=== PATIENT | female | born 1975 | race Hispanic/Latino ===

== ENCOUNTER 2017-01-10 08:52 | Inpatient (IN) | payer OTHER ==
[2017-01-10 09:38] LABS: Mean Corpuscular HGB Conc 30 % (30-34); Mean Corpuscular Volume 71 fl (79-97); Platelet Count 303 K/mm3 (140-440); Red Blood Count 4.64 M/mm3 (3.65-5.03); Red Cell Distribution Width 17.2 % (13.2-15.2)
[2017-01-10 09:43] LABS: Mean Corpuscular Hemoglobin 22 pg (28-32)
[2017-01-10 09:57] LABS: Alanine Aminotransferase 12 units/L (7-56); Albumin 3.7 g/dL (3.9-5); Albumin/Globulin Ratio 1.2 %; Alkaline Phosphatase 57 units/L (35-129); Anion Gap 18 mmol/L; BUN/Creatinine Ratio 12.85; Bilirubin,Total 0.4 mg/dL (0.1-1.2); Blood Urea Nitrogen 9 mg/dL (7-17); Calcium 9.5 mg/dL (8.4-10.2); Carbon Dioxide 25 mmol/L (22-30); Glucose 142 mg/dL (65-100); Lipase 27 units/L (13-60); Potassium 4.1 mmol/L (3.6-5.0); Sodium 136 mmol/L (137-145); Total Protein 6.9 g/dL (6.3-8.2)
[2017-01-10] MEDS ORDERED: ZOFRAN IV ONE (10:27)
[2017-01-10] MEDS ORDERED: TORADOL IV ONE (10:27)
[2017-01-10] MEDS ORDERED: NACL 0.9% 1000 ML 1,000 ML IV ONE (10:27)
[2017-01-10] MEDS ORDERED: MORPHINE IV ONE ×2 (10:27→12:18)
--- NOTE | 2017-01-10 10:30 | Emergency Department Report ---
ED Abdominal Pain HPI - General Chief Complaint: Abdominal Pain Stated Complaint: ABD PAIN Time Seen by Provider: 01/10/17 10:24 Source: patient, EMS Mode of arrival: Wheelchair Limitations: No Limitations - History of Present Illness MD Complaint: abdominal pain Onset/Timin -: Gradual, days(s) Location: periumbilical, LUQ, RUQ, epigastric Radiation: none Severity: moderate Severity scale (0 -10): 7 Quality: cramping Consistency: constant Improves With: nothing Worsens With: nothing Associated Symptoms: nausea, vomiting. denies: diarrhea, fever, chills, constipation, dysuria, hematemesis, hematochezia, melena, hematuria, anorexia - Related Data Home Medications Medication Instructions Recorded Confirmed Last Taken No Known Home Medications [No 01/10/17 01/10/17 Unknown Reported Home Medications] Allergies Allergy/AdvReac Type Severity Reaction Status Date / Time No Known Allergies Allergy Verified 01/10/17 12:27 ED Review of Systems ROS: Stated complaint: ABD PAIN Other details as noted in HPI Constitutional: denies: chills, fever Eyes: denies: eye pain, eye discharge, vision change ENT: denies: ear pain, throat pain Respiratory: denies: cough, shortness of breath, wheezing Cardiovascular: denies: chest pain, palpitations Endocrine: no symptoms reported Gastrointestinal: denies: abdominal pain, nausea, diarrhea Genitourinary: denies: urgency, dysuria, discharge Musculoskeletal: denies: back pain, joint swelling, arthralgia Skin: denies: rash, lesions Neurological: denies: headache, weakness, paresthesias Psychiatric: denies: anxiety, depression Hematological/Lymphatic: denies: easy bleeding, easy bruising ED Past Medical Hx - Past Medical History Previous Medical History?: No - Surgical History Past Surgical History?: Yes Additional Surgical History: tonsillectomy, tubal ligation, - Social History Smoking Status: Current Every Day Smoker Substance Use Type: Alcohol - Medications Home Medications: Home Medications Medication Instructions Recorded Confirmed Last Taken Type No Known Home Medications [No 01/10/17 01/10/17 Unknown History Reported Home Medications] ED Physical Exam - General Limitations: No Limitations General appearance: alert, in no apparent distress - Head Head exam: Present: atraumatic, normocephalic - Eye Eye exam: Present: normal appearance - ENT ENT exam: Present: mucous membranes moist - Neck Neck exam: Present: normal inspection - Respiratory Respiratory exam: Present: normal lung sounds bilaterally. Absent: respiratory distress - Cardiovascular Cardiovascular Exam: Present: regular rate, normal rhythm. Absent: systolic murmur, diastolic murmur, rubs, gallop - GI/Abdominal GI/Abdominal exam: Present: soft, tenderness (mild tenderness in RUQ/LUQ, ), normal bowel sounds. Absent: distended, guarding, rebound, rigid, organomegaly , mass, bruit, pulsatile mass, hernia - Extremities Exam Extremities exam: Present: normal inspection - Back Exam Back exam: Present: normal inspection - Neurological Exam Neurological exam: Present: alert, oriented X3 - Psychiatric Psychiatric exam: Present: normal affect, normal mood - Skin Skin exam: Present: warm, dry, intact, normal color. Absent: rash ED Course Vital Signs 01/10/17 01/10/17 01/10/17 08:57 10:55 11:00 Temperature 98.8 F Pulse Rate 112 H 106 H 109 H Respiratory 18 23 20 Rate Blood Pressure 132/85 116/78 O2 Sat by Pulse 100 100 Oximetry 01/10/17 01/10/17 01/10/17 11:30 11:39 11:40 Temperature Pulse Rate 100 H Respiratory 22 22 22 Rate Blood Pressure 117/69 O2 Sat by Pulse 98 98 Oximetry 01/10/17 01/10/17 11:41 12:21 Temperature Pulse Rate Respiratory 22 22 Rate Blood Pressure O2 Sat by Pulse Oximetry ED Medical Decision Making - Lab Data Result diagrams: 01/10/17 09:15 01/10/17 09:15 - Medical Decision Making patient doing well , tachycardia resolved with fluids and morphine , US showing some GB sludge , but with her elevated WBC decided to to ct scan which shows free fluid and free air, talk to surgery at 1pm and relay the cases at hand , Abx given here and fluids given here , Critical care attestation.: If time is entered above; I have spent that time in minutes in the direct care of this critically ill patient, excluding procedure time. ED Disposition Clinical Impression: Perforated abdominal viscus Disposition: OP ADMITTED IP TO THIS HOSP Is pt being admited?: Yes Does the pt Need Aspirin: No Condition: Fair Instructions: Abdominal Pain (ED) Referrals: PRIMARY CARE, [Primary Care Provider] - 3-5 Days Time of Disposition: 13:02
[2017-01-10 11:10] LABS: Bacteria,Urine 1+ /HPF (Negative); Bilirubin,Urine NEG (Negative); Blood,Urine NEG (Negative); Ketones,Urine NEG (Negative); Leukocyte Esterase,Urine NEG (Negative); Nitrite,Urine NEG (Negative); Urobilinogen,Urine < 2.0 mg/dL (<2.0)
--- NOTE | 2017-01-10 11:12 | Ultrasound Report ---
Abdomen sonogram: History: Abdominal pain. Findings: No evidence of aortic aneurysm. Normal liver. No intrahepatic or extrahepatic duct dilatation. Common bile duct diameter 3.6 mm. Gallbladder wall thickness 2.5 mm. No calculi in the gallbladder. Minimal sludge. No pericholecystic fluid. Right kidney 11.5 x 5.1 x 6.4 cm. Cortical thickness 1.8 cm. Left kidney 10 x 4.5 x 6 cm. Cortical thickness is 1.0 cm. Normal spleen measures 9.4 cm. Normal pancreas. Impression: Minimal sludge within the gallbladder.
[2017-01-10 11:29] LABS: Basophils % (Manual) 0 % (0.0-1.8); Blastocytes % (Manual) 0 %; Diff Status Complete; Eosinophils % (Manual) 0 % (0.0-4.3); Hypochromasia 2+
[2017-01-10] MEDS ORDERED: MORPHINE ONE (12:14)
[2017-01-10] MEDS ORDERED: NACL ONE (12:23)
[2017-01-10] MEDS ORDERED: PROTONIX IV ONE (12:56)
[2017-01-10] MEDS ORDERED: CLEOCIN 600 MG/50 mL 600 MG/50 ML BAG IV ONE (12:56)
[2017-01-10] MEDS ORDERED: UNASYN/NS 3 GM/100 ML 3 GM/100 ML BAG IV ONE (12:56)
--- NOTE | 2017-01-10 12:58 | Cat Scan Report ---
CT SCAN OF THE ABDOMEN AND PELVIS WITH CONTRAST: HISTORY: Abdominal pain. TECHNIQUE: Helical CT in 1.25mm intervals following IV contrast. Sagittal and coronal reconstructions. FINDINGS: Large free air and moderate free fluid is identified in the abdomen. Perforated viscus is suspected until proven otherwise. The site of perforation is not clearly evident. There is no convincing evidence for bowel obstruction. There does appear to be mild thickening of the gastric antrum and proximal duodenum. This could represent a perforated ulcer. Please correlate with the patient's clinical presentation. The liver, biliary system, pancreas, spleen, kidneys and adrenal glands are unremarkable. The aorta is normal caliber. The venous structures are patent. The uterus, adnexa and bladder are within normal limits. Normal heart size. Clear lung bases. Normal bony structures. IMPRESSION: Free intraperitoneal air and fluid is identified. Perforated viscus is suspected until proven otherwise. This may represent a perforated ulcer from the stomach or duodenum. Please correlate with the patient's clinical presentation. These findings were discussed with Dr. Taylor in the emergency department at 1245 hrs.
--- NOTE | 2017-01-10 13:08 | Admit Criteria Form ---
Admission Criteria Documentation: ABDOMINAL PAIN Clinical Indications for Admission to Inpatient Care (Place 'X' for any and all applicable criteria): Admission is indicated for ANY ONE of the following(1)(2)(3)(4)(5): [X ]I. Inpatient admission required rather than observation care (Also use Abdominal Pain: Observation Care, as appropriate) because of ANY ONE of the following: [ ]a) Severe pain requiring acute inpatient management [X ]b) Identification of etiology/finding that requires inpatient care (eg, aortic dissection, free air) [ ]c) Absent bowel sounds with complete ileus(6) [ ]d) Suspected toxic megacolon [ ]e) Severe electrolyte abnormalities requiring inpatient care [ ]f) High fever or infection requiring inpatient admission as indicated by ANY ONE of following(7)(8): [ ] i) Appropriate outpatient or observational care antimicrobial treatment unavailable, not effective, or not feasible [ ] ii) Documented bacteremia [ ] iii) Temperature > 104.9 degrees F (oral) [ ] iv) T >103.1 F (oral) or < 96.8 F(rectal) that does not respond to all emergency treatment measures [ ]g) Signs of intestinal obstruction [B] [ ]h) Hemodynamic instability [ ]i) IV fluid to replace significant ongoing losses (greater than 3 L/m2 per day) (12)(13) [ ]j) Percutaneous or open drainage (eg, abscess, biliary tract ) procedures [ ]k) Parenteral nutrition regimen that must be implemented on inpatient basis [ ]l) Other condition,treatment or monitoring requiring inpatient admission. [ ]II. Peritoneal signs present [ ]III. Surgery needed that cannot be performed on an ambulatory basis. [ ]IV. Evaluation requires patient to not eat or drink for extended period ( eg, more than 24 hours). [ ]V. Contraindications and/or Inappropriate clinical situations for Observational Care in patients with abdominal pain, when ANY ONE of the following is required: [ ]a) Thorough evaluation is required to prevent catastrophic events due to delays in diagnosing (e.g.Mesenteric ischemia) 1,3 [ ]b) Patient with severe pathology or with chronic symptoms unlikely to improve in the ED stay (3) [ ]. General contraindications and/or Inappropriate clinical situations for Observational Care in patients with abdominal pain, when ANY ONE of the following is required: [ ]a) Prediction of prolongation of LOS based on ANY ONE of the following may be considered as a contraindication for observational care 2, 3, 4, 5, 6, 7, 8, 9, 10, 11 [ ]i) Age > 65 yrs. [ ]ii) Patient arriving by ambulance [ ]iii) Patient with high acuity [ ]iv) Patient requiring vital sign monitoring [ ]v) Patient on IV medication [ ]b) Systolic blood pressures 180mmHg 3,12 [ ]c) Patient with altered mental status including delirium and other alteration of consciousness, (3) [ ]d) Patient whose discharge disposition will be to a assisted home or rehabilitation home should not be managed in Emergency Department Observation Unit. CMS rule requires 3 days hospital stay before such placement.3,13 [ ]e) Patient with failure to thrive due to broad array of etiologies 3,16,17 [ ]f) Inability to ambulate 3,14 Extended stay beyond goal length of stay may be needed for(2)(3): [ ]a) Persistent abdominal pain with suspected intra-abdominal process [ ]b) Diagnosed condition requiring continued stay (e.g., pancreatitis, complicated diverticulitis) [ ]c) Surgery (e.g., colectomy) The original [email or web address] content created by [employer] has been revised. The portions of the content which have been revised are identified through the use of italic text or in bold, and [facility] has neither reviewed nor approved the modified material.All other unmodified content is copyright [email or web address]. Please see references footnoted in the original [email or web address] edition 2016 Admission Criteria Met: Yes
[2017-01-10] MEDS ORDERED: DILAUDID IV ONE (13:37)
[2017-01-10] MEDS ORDERED: D5W/0.45% NACL/KCL 20 MEQ 20 MEQ/1,000 ML BAG IV SCH (15:00)
[2017-01-10] MEDS ORDERED: ZOFRAN IV NR (15:00)
[2017-01-10] MEDS ORDERED: DIPRIVAN 10 MG/ML IV ONE (15:13)
[2017-01-10] MEDS ORDERED: DILAUDID ONE (15:13)
[2017-01-10] MEDS ORDERED: XYLOCAINE MPF 2% ONE (15:14)
[2017-01-10] MEDS ORDERED: ZEMURON IV ONE (15:15)
[2017-01-10] MEDS ORDERED: QUELICIN ONE (15:16)
[2017-01-10] MEDS ORDERED: ROBINUL ONE (15:17)
--- NOTE | 2017-01-10 15:36 | Anesthesia Day of Surgery ---
Anesthesia Day of Surgery - Day of Surgery Patient Examined: Yes Patient H&P Reviewed: Yes Patient is NPO: Yes
--- NOTE | 2017-01-10 15:37 | Anesthesia Consultation ---
Anesthesia Consult and Med Hx - Airway Anesthetic Teeth Evaluation: Good, Caps ROM Head & Neck: Adequate Mental/Hyoid Distance: Adequate Mallampati Class: Class II Intubation Access Assessment: Probably Good - Pulmonary Exam CTA: Yes - Cardiac Exam Cardiac Exam: RRR - Pre-Operative Health Status ASA Pre-Surgery Classification: ASA2 Proposed Anesthetic Plan: General - Pulmonary Hx Smoking: Yes - Gastrointestinal Hx Ulcer: Yes - Hematic Hx Anemia: Yes - Additional Comments Anesthesia Medical History Comments: NPO after MN . No prior anesthesia problems. Hx HTN
[2017-01-10] MEDS ORDERED: NACL 0.9% 1000 ML 1,000 ML IV SCH (16:00)
[2017-01-10] MEDS ORDERED: VERSED IV NR (16:00)
[2017-01-10] MEDS ORDERED: NEOSTIGMINE ONE (16:30)
[2017-01-10] MEDS ORDERED: ZOFRAN ONE (16:30)
[2017-01-10] MEDS ORDERED: DECADRON ONE (16:34)
[2017-01-10] MEDS ORDERED: NACL 0.9% 1000 ML 1,000 ML ONE (16:44)
[2017-01-10] MEDS ORDERED: DILAUDID IV PRN (17:23)
--- NOTE | 2017-01-10 18:25 | Post Anesthesia Evaluation ---
- Post Anesthesia Evaluation Patient Participated: Yes Airway Patent: Yes Stable Respiratory Function: Yes Temp > 96.8F: Yes Pain Manageable: Yes Adequeate Hydration: Yes Anesthesia Complications: No Block Receding Appropriately: Not Applicable
--- NOTE | 2017-01-10 19:53 | Operative Report ---
PREOPERATIVE DIAGNOSES: Acute abdominal pain with nausea and the free air under diaphragm. POSTOPERATIVE DIAGNOSIS: Perforated prepyloric ulcer located just before the pylorus is about 1 x 1 cm we took a biopsy from that. BLOOD LOSS: Minimal. FINDINGS: The patient had a perforated ulcer in the prepyloric area is about 1 x 1 cm with severe inflammation we took a biopsy of that. This examination did not reveal anything specific. I had copious irrigation of the entire abdominal cavity. DESCRIPTION OF PROCEDURE: With the patient in supine position, prepped and draped in usual fashion. I made a midline supraumbilical incision in deep subcutaneous tissue all the way down to fascia, which was incised. I was able to reach the peritoneum. Once I was there, I could see the inflammatory findings in the prepyloric area just inferior to the right lobe of the liver. So the entire abdominal cavity was irrigated thoroughly with copious amounts of normal saline. I was able to take a small biopsy of the ulcer and this was closed with one layer using for that purpose interrupted stitches of 3-0 silk through and through. Then, a tie over off the omentum was applied to have a good closure. We were well satisfied. The abdominal cavity was then irrigated with sterile normal saline then the wound was closed in layers. I used #1 Vicryl interruptedly for the fascia and inés for the skin with Telfa sarah in between and the bandage. The patient was then transferred to the recovery room in good condition. Blood loss not more than 30 minutes. We had NG tube inserted as well. JOB# [id number] SARA/ELI
--- NOTE | 2017-01-10 20:35 | History and Physical Report ---
HISTORY OF PRESENT ILLNESS: This patient was seen in the ER the day of this admission because of severe pain that is about 1 day duration in the epigastric area, with nausea and vomiting. She gives the history of ulcer disease for which she does not take any medication on a regular basis, every now and then according to her pain. PHYSICAL EXAMINATION: GENERAL: Showed a well-preserved, young, healthy-looking white female. She is in no distress. HEAD AND NECK: Negative. CHEST: Clear. HEART: Sound normal. BREASTS: Symmetric. No evidence of specific masses. ABDOMEN: Showed severe tenderness with rebound in the epigastric area. EXTREMITIES: Showed no significant edema. IMPRESSION: Perforated viscus, probably peptic ulcer with peptic ulcer disease. Exogenous obesity? I had a lengthy talk with the patient and her mom for surgical intervention in terms of an emergency, to go in and find an ulcer and close it. I did indicate to them the complications involved with this operation, namely bleeding, infection, perforation, pneumonia, blood clots and others. They gave me the permission to go ahead and do it, and this was done. JOB# [id number] SARA/ELI
[2017-01-10 22:17] LABS: Anion Gap 15 mmol/L; BUN/Creatinine Ratio 13.33; Blood Urea Nitrogen 8 mg/dL (7-17); Calcium 8.2 mg/dL (8.4-10.2); Carbon Dioxide 24 mmol/L (22-30); Glucose 121 mg/dL (65-100); Potassium 4.1 mmol/L (3.6-5.0); Sodium 135 mmol/L (137-145)
[2017-01-11] MEDS: DILAUDID IV PRN ×6 (00:11→21:10)
[2017-01-11] MEDS: D5W/0.45% NACL/KCL 20 MEQ 20 MEQ/1,000 ML BAG IV SCH ×2 (04:54→16:56)
[2017-01-11 09:14] LABS: Hematocrit 26.5 % (30.3-42.9); Mean Corpuscular HGB Conc 30 % (30-34); Mean Corpuscular Hemoglobin 22 pg (28-32); Mean Corpuscular Volume 72 fl (79-97); Platelet Count 212 K/mm3 (140-440); Red Blood Count 3.68 M/mm3 (3.65-5.03); White Blood Count 14.9 K/mm3 (4.5-11.0)
[2017-01-11] MEDS: LEVAQUIN 750MG/150ML 750 MG/150 ML BAG IV SCH (10:15)
[2017-01-11] MEDS ORDERED: CHLORASEPTIC MM PRN (15:38)
--- NOTE | 2017-01-11 15:58 | Progress Note ---
Subjective Narrative: doing OK talked to Pt and RN will need to Keep NG to LIS. noted low HGB , Objective Vital Signs - 12hr 01/11/17 01/11/17 07:00 10:00 Temperature 98 F 98.1 F Pulse Rate [ 88 66 Left Brachial] Respiratory 20 20 Rate Blood Pressure 107/80 110/60 [Left Arm] O2 Sat by Pulse 98 Oximetry - Labs 01/11/17 08:18 01/10/17 21:40 Diabetes panel 01/10/17 Range/Units 21:40 Sodium 135 L (137-145) mmol/L Potassium 4.1 (3.6-5.0) mmol/L Chloride 100.0 (98-107) mmol/L Carbon Dioxide 24 (22-30) mmol/L BUN 8 (7-17) mg/dL Creatinine 0.6 L (0.7-1.2) mg/dL Glucose 121 H (65-100) mg/dL Calcium 8.2 L (8.4-10.2) mg/dL Calcium panel 01/10/17 Range/Units 21:40 Calcium 8.2 L (8.4-10.2) mg/dL Pituitary panel 01/10/17 Range/Units 21:40 Sodium 135 L (137-145) mmol/L Potassium 4.1 (3.6-5.0) mmol/L Chloride 100.0 (98-107) mmol/L Carbon Dioxide 24 (22-30) mmol/L BUN 8 (7-17) mg/dL Creatinine 0.6 L (0.7-1.2) mg/dL Glucose 121 H (65-100) mg/dL Calcium 8.2 L (8.4-10.2) mg/dL Adrenal panel 01/10/17 Range/Units 21:40 Sodium 135 L (137-145) mmol/L Potassium 4.1 (3.6-5.0) mmol/L Chloride 100.0 (98-107) mmol/L Carbon Dioxide 24 (22-30) mmol/L BUN 8 (7-17) mg/dL Creatinine 0.6 L (0.7-1.2) mg/dL Glucose 121 H (65-100) mg/dL Calcium 8.2 L (8.4-10.2) mg/dL
[2017-01-12] MEDS: D5W/0.45% NACL/KCL 20 MEQ 20 MEQ/1,000 ML BAG IV SCH ×4 (00:03→23:08)
[2017-01-12] MEDS: DILAUDID IV PRN ×4 (01:19→23:08)
[2017-01-12 09:48] LABS: Basophils % (Auto) 0.2 % (0.0-1.8); Eosinophils % (Auto) 3.3 % (0.0-4.3); Hematocrit 25.4 % (30.3-42.9); Hemoglobin 7.8 gm/dl (10.1-14.3); Mean Corpuscular HGB Conc 31 % (30-34); Mean Corpuscular Volume 72 fl (79-97); Platelet Count 223 K/mm3 (140-440); Red Blood Count 3.54 M/mm3 (3.65-5.03); Red Cell Distribution Width 17.5 % (13.2-15.2)
[2017-01-12 09:50] LABS: Mean Corpuscular Hemoglobin 22 pg (28-32)
[2017-01-12] MEDS: LEVAQUIN 750MG/150ML 750 MG/150 ML BAG IV SCH (09:56)
--- NOTE | 2017-01-12 17:16 | Progress Note ---
Subjective Narrative: Doing fine ambulatory ,500 cc gastric output . wound OK sarah out , will see if NG to be out , CBC OK , Objective Vital Signs - 12hr 01/12/17 01/12/17 08:00 16:00 Temperature 98.4 F 98.8 F Pulse Rate [ 78 94 H Left Brachial] Respiratory 18 18 Rate Blood Pressure 122/80 138/91 [Left Arm] O2 Sat by Pulse 98 Oximetry - Labs 01/12/17 09:29 01/10/17 21:40
[2017-01-13] MEDS: DILAUDID IV PRN ×6 (03:12→22:58)
[2017-01-13] MEDS: D5W/0.45% NACL/KCL 20 MEQ 20 MEQ/1,000 ML BAG IV SCH ×3 (06:13→21:57)
[2017-01-13 08:42] LABS: Anion Gap 17 mmol/L; BUN/Creatinine Ratio 6.66; Blood Urea Nitrogen 4 mg/dL (7-17); Calcium 8.7 mg/dL (8.4-10.2); Carbon Dioxide 26 mmol/L (22-30); Chloride 97.9 mmol/L (98-107); Glucose 112 mg/dL (65-100); Potassium 3.9 mmol/L (3.6-5.0); Sodium 137 mmol/L (137-145)
[2017-01-13] MEDS: LEVAQUIN 750MG/150ML 750 MG/150 ML BAG IV SCH (10:03)
--- NOTE | 2017-01-13 19:02 | Progress Note ---
Subjective Patient Reports: Positive: feels better, still having pain, pain is less, flatus , no bowel movement Narrative: doing excellent , ambulatory passing flatus no BM NG out will keep NPO . Objective Vital Signs - 12hr 01/13/17 01/13/17 09:45 17:00 Temperature 99.1 F 99.4 F Pulse Rate [ 98 H Left Brachial] Pulse Rate [ 83 Right From Monitor] Respiratory 18 18 Rate Blood Pressure 133/76 121/75 [Right Arm] O2 Sat by Pulse 95 97 Oximetry - Labs 01/12/17 09:29 01/13/17 07:45 Diabetes panel 01/13/17 Range/Units 07:45 Sodium 137 (137-145) mmol/L Potassium 3.9 (3.6-5.0) mmol/L Chloride 97.9 L (98-107) mmol/L Carbon Dioxide 26 (22-30) mmol/L BUN 4 L (7-17) mg/dL Creatinine 0.6 L (0.7-1.2) mg/dL Glucose 112 H (65-100) mg/dL Calcium 8.7 (8.4-10.2) mg/dL Calcium panel 01/13/17 Range/Units 07:45 Calcium 8.7 (8.4-10.2) mg/dL Pituitary panel 01/13/17 Range/Units 07:45 Sodium 137 (137-145) mmol/L Potassium 3.9 (3.6-5.0) mmol/L Chloride 97.9 L (98-107) mmol/L Carbon Dioxide 26 (22-30) mmol/L BUN 4 L (7-17) mg/dL Creatinine 0.6 L (0.7-1.2) mg/dL Glucose 112 H (65-100) mg/dL Calcium 8.7 (8.4-10.2) mg/dL Adrenal panel 01/13/17 Range/Units 07:45 Sodium 137 (137-145) mmol/L Potassium 3.9 (3.6-5.0) mmol/L Chloride 97.9 L (98-107) mmol/L Carbon Dioxide 26 (22-30) mmol/L BUN 4 L (7-17) mg/dL Creatinine 0.6 L (0.7-1.2) mg/dL Glucose 112 H (65-100) mg/dL Calcium 8.7 (8.4-10.2) mg/dL
[2017-01-13] MEDS: PROTONIX IV SCH (21:59)
[2017-01-14] MEDS: DILAUDID IV PRN ×5 (03:15→19:31)
[2017-01-14] MEDS: D5W/0.45% NACL/KCL 20 MEQ 20 MEQ/1,000 ML BAG IV SCH (07:30)
--- NOTE | 2017-01-14 07:55 | Progress Note ---
Subjective Patient Reports: Positive: feels better, flatus, bowel movement Narrative: talked to RN , doing fine had a BM , will start cl liquids PO Objective Vital Signs - 12hr 01/13/17 01/13/17 01/13/17 22:00 22:58 23:28 Temperature Pulse Rate [ Left Brachial] Respiratory 20 20 18 Rate Respiratory 20 Rate [Abdomen] Blood Pressure [Right Arm] 01/13/17 01/14/17 01/14/17 23:32 03:15 03:45 Temperature 99.3 F Pulse Rate [ 95 H Left Brachial] Respiratory 20 20 18 Rate Respiratory Rate [Abdomen] Blood Pressure 133/85 [Right Arm] 01/14/17 07:31 Temperature Pulse Rate [ Left Brachial] Respiratory 20 Rate Respiratory Rate [Abdomen] Blood Pressure [Right Arm] - Labs 01/12/17 09:29 01/13/17 07:45 Diabetes panel 01/13/17 Range/Units 07:45 Sodium 137 (137-145) mmol/L Potassium 3.9 (3.6-5.0) mmol/L Chloride 97.9 L (98-107) mmol/L Carbon Dioxide 26 (22-30) mmol/L BUN 4 L (7-17) mg/dL Creatinine 0.6 L (0.7-1.2) mg/dL Glucose 112 H (65-100) mg/dL Calcium 8.7 (8.4-10.2) mg/dL Calcium panel 01/13/17 Range/Units 07:45 Calcium 8.7 (8.4-10.2) mg/dL Pituitary panel 01/13/17 Range/Units 07:45 Sodium 137 (137-145) mmol/L Potassium 3.9 (3.6-5.0) mmol/L Chloride 97.9 L (98-107) mmol/L Carbon Dioxide 26 (22-30) mmol/L BUN 4 L (7-17) mg/dL Creatinine 0.6 L (0.7-1.2) mg/dL Glucose 112 H (65-100) mg/dL Calcium 8.7 (8.4-10.2) mg/dL Adrenal panel 01/13/17 Range/Units 07:45 Sodium 137 (137-145) mmol/L Potassium 3.9 (3.6-5.0) mmol/L Chloride 97.9 L (98-107) mmol/L Carbon Dioxide 26 (22-30) mmol/L BUN 4 L (7-17) mg/dL Creatinine 0.6 L (0.7-1.2) mg/dL Glucose 112 H (65-100) mg/dL Calcium 8.7 (8.4-10.2) mg/dL
[2017-01-14] MEDS: LEVAQUIN 750MG/150ML 750 MG/150 ML BAG IV SCH (11:20)
[2017-01-14] MEDS: PROTONIX IV SCH ×2 (11:21→22:18)
[2017-01-14] MEDS ORDERED: DILAUDID IV ONE (21:00)
[2017-01-15] MEDS: DILAUDID IV PRN ×3 (01:46→10:34)
[2017-01-15] MEDS: LEVAQUIN 750MG/150ML 750 MG/150 ML BAG IV SCH (09:51)
[2017-01-15] MEDS: PROTONIX IV SCH (09:51)
[2017-01-15 12:50] VITALS: BP 98/63
--- NOTE | 2017-01-15 18:16 | Discharge Summary ---
FINAL DIAGNOSIS: Perforated prepyloric ulcer. We took a biopsy, and it showed inflammation only. [id number] OF PRESENT ILLNESS: This lady was seen in the ER on the day of admission for severe pain to the epigastrium, nausea and vomiting and she was found to have free air in the abdomen on a CAT scan. She was taken to the operating room for definitive surgical intervention. She has never been in the hospital in the past. She has never had any operations. She is a smoker; however. She has no children. PHYSICAL EXAMINATION: GENERAL: A preserved white female. She is in no distress. She is in pain, however. HEAD AND NECK: Negative. CHEST: Clear. HEART: Sounds normal. ABDOMEN: Showed severe tenderness in the epigastric area. HOSPITAL COURSE: The patient was thus admitted where she underwent laparotomy with biopsy and closure of a prepyloric ulcer of the distal pylorus. The pathology showed inflammation only. She was advised to go home to be on ____, to take Protonix 40 mg p.o. daily and see a aircraft pilot for her problem. I did indicate to her that this may come back again on her. Also, the patient was advised not to smoke and no alcohol. ____. She may take a shower. JOB# [id number] SARA/ELI
== END 2017-01-15 13:30 | disposition home or self-care (01) | DRG 328 ==
LOC: ED 08:52 → 2B-SURG 14:06
PROVIDERS: ADMIT Surgery; ATTEND Surgery
PROC: 0DB70ZX Excision of Stomach, Pylorus, Open Approach, Diagnostic (ICD-10-PCS; principal; 2017-01-10)
DX: K25.5 Chronic or unspecified gastric ulcer with perforation (principal); Z98.51 Tubal ligation status; Z90.89 Acquired absence of other organs; Z87.891 Personal history of nicotine dependence; Z86.2 Personal history of diseases of the blood and blood-forming organs and certain disorders involving the immune mechanism; I10 Essential (primary) hypertension
CPT/HCPCS: 36415; 74177; 76700; 80048; 80053; 81001; 81025; 82150; 83690; 85007; 85025; 85027; 86850; 86900; 86901; 88305; 93005; 93010; 96361; 96365; 96367; 96375; 96376; C9113; J0295; J0330; J1100; J1170; J1885; J1956; J2250; J2270; J2405; J2704; J2710; J7030; Q9967

== ENCOUNTER 2018-11-30 09:22 | Day surgery (SDC) | payer MEDICAID ==
[~2018-11-30 09:22] MED LIST: NACL 0.9% 1000 ML 1,000 ML IV SCH
--- NOTE | 2018-11-30 10:40 | Anesthesia Day of Surgery ---
Anesthesia Day of Surgery - Day of Surgery Patient Examined: Yes Patient H&P Reviewed: Yes Patient is NPO: Yes Beta Blockers: No
--- NOTE | 2018-11-30 10:41 | Anesthesia Consultation ---
Anesthesia Consult and Med Hx Date of service: 11/30/18 - Airway Anesthetic Teeth Evaluation: Good ROM Head & Neck: Adequate Mental/Hyoid Distance: Adequate Mallampati Class: Class III Intubation Access Assessment: Good - Pulmonary Exam CTA: No - Cardiac Exam Cardiac Exam: No Murmur - Pre-Operative Health Status ASA Pre-Surgery Classification: ASA2 Proposed Anesthetic Plan: MAC - Pulmonary Hx Smoking: Yes Hx Asthma: No COPD: No Hx Pneumonia: No - Cardiovascular System Hx Hypertension: No Hx Heart Attack/AMI: No Hx Cardia Arrhythmia: No - Gastrointestinal Hx Ulcer: Yes (PUD WITH PERFORATION) - Endocrine Hx End Stage Renal Disease: No - Hematic Hx Anemia: Yes - Other Systems Hx Alcohol Use: Yes Hx Obesity: Yes
[2018-11-30] MEDS ORDERED: DIPRIVAN 10 MG/ML IV ONE ×2 (11:13→12:06)
[2018-11-30] MEDS ORDERED: VERSED ONE (11:13)
[2018-11-30] MEDS ORDERED: WATER FOR IRRIG STERILE IR ONE (11:17)
--- NOTE | 2018-11-30 12:13 | Operative Report ---
Operative Report Operative Report: Date: 11/30/2018 Operative Report: Date of procedure: 11/30/2018 Procedure: Esophagogastroduodenoscopy with multiple mucosal biopsies. Disruption of retained sutures with a needle-knife. Attending physician: Estevan Galicia MD Mechanical Service Specialist: Estevan Galicia MD Indication: Patient is a 43 -year-old female who presented with a history of a perforated duodenal ulcer status post surgical repair. Patient subsequently had an upper endoscopy because of recurrent symptoms and was found to have a large duodenal ulcer at the same location. She was treated and a subsequent repeat endoscopy showed partial resolution of the duodenal ulcer. Patient was found to have Helicobacter pylori infection which was successfully treated. Patient presented with recurrent epigastric pain. An upper endoscopy is done to demonstrate if patient has recurrent ulcer disease and also to see if she has been interval resolution of duodenal ulcer so that treatment may be directed based on the findings. Consent: Informed consent was obtained after advising the patient and family regarding nature of this procedure, its indications, potential benefits as well as possible complications including but not limited to bleeding perforation and adverse reaction to medication, infection as well as other cardiopulmonary compl ications. An informed written and verbal consent was then obtained after due opportunity was provided for questions and answers. Monitoring: Patient was monitored continuously with pulse oximetry and electrocardiographic recordings as well as blood pressure recordings. Vital signs remained stable throughout this procedure with no untoward events. Preoperative assessment: Patient was assessed immediately prior to this procedure for capacity to tolerate monitored anesthesia care and moderate sedation as well as general anesthesia. Patient's ASA classification is 3, Mallampati class is 2, Hyomental distance is 3. Instrument: Fujinon video endoscope Medications: Propofol given intravenously in divided doses. For details please refer to anesthesia records. Description of procedure: Patient was placed in the left lateral decubitus position after achieving sedation, the endoscope was introduced into the esophagus under direct vision. It was then advanced beyond the esophagus into t he stomach and then beyond the stomach into the duodenum and to the second portion of the duodenum. It was subsequently withdrawn with careful inspection of all mucosal surfaces with the following findings. Findings: The esophagus was normal. It was mild erythema or in the gastric antrum. There has been interval resolution of the duodenal ulcer however the sutures where retained in the also side. The sutures were disrupted with a needle-knife with cautery. Biopsies of the antrum were obtained for histopathology. There were erosions seen in the duodenal bulb as well. Impression: Mild antral erythema status post biopsies. Healed duodenal ulcer with retained suture status post disruption of the sutures with a needle-knife. Duodenal bulb erosions with changes suggestive of mild duodenitis. Plan: Continue treatment with proton pump inhibitors. Follow pathology report. Direct additional treatment based on the pathology report. Patient will be observed clinically. Additional recommendations will be made follow-up.
--- NOTE | 2018-11-30 12:13 | Discharge Summary ---
Short Stay Discharge Plan Activity: advance as tolerated Weight Bearing Status: Weight Bear as Tolerated Diet: regular Follow up with: ROSSY MORA MD [Primary Care Provider] - 7 Days
[2018-11-30 12:25] VITALS: BP 116/85
== END 2018-11-30 09:23 | disposition home or self-care (01) ==
LOC: GIO 09:22
PROVIDERS: ATTEND Internal Medicine Gastroenterology
DX: K29.50 Unspecified chronic gastritis without bleeding (principal); K26.9 Duodenal ulcer, unspecified as acute or chronic, without hemorrhage or perforation; K21.9 Gastro-esophageal reflux disease without esophagitis; F17.210 Nicotine dependence, cigarettes, uncomplicated; E66.9 Obesity, unspecified; Z68.38 Body mass index [BMI] 38.0-38.9, adult; Z98.51 Tubal ligation status; Z72.89 Other problems related to lifestyle; Z79.899 Other long term (current) drug therapy; Z86.2 Personal history of diseases of the blood and blood-forming organs and certain disorders involving the immune mechanism
CPT/HCPCS: 43239; 81025; 88305; 88342; J2250; J2704; J7030

== ENCOUNTER 2019-01-25 08:34 | Observation (INO) | payer MEDICAID ==
--- NOTE | 2019-01-25 09:16 | Anesthesia Consultation ---
Anesthesia Consult and Med Hx Date of service: 01/25/19 - Airway Anesthetic Teeth Evaluation: Good ROM Head & Neck: Adequate Mental/Hyoid Distance: Adequate Mallampati Class: Class II Intubation Access Assessment: Good - Pulmonary Exam CTA: Yes - Cardiac Exam Cardiac Exam: RRR - Pre-Operative Health Status ASA Pre-Surgery Classification: ASA2 Proposed Anesthetic Plan: General - Pulmonary Hx Smoking: Yes (OFF AND ON FOR 10YRS; STARTED BACK 2017 2CIG/DAY) Hx Asthma: No COPD: No Hx Pneumonia: No - Cardiovascular System Hx Hypertension: No Hx Heart Attack/AMI: No Hx Cardia Arrhythmia: No - Central Nervous System Hx Psychiatric Problems: No - Gastrointestinal Hx Ulcer: Yes (LEAD TO STOMACH PERFORATION 12/2016 (SX)) - Endocrine Hx End Stage Renal Disease: No - Hematic Hx Anemia: Yes - Other Systems Hx Alcohol Use: Yes Hx Substance Use: No Hx Cancer: No Hx Obesity: Yes
[2019-01-25] MEDS ORDERED: NARCAN 0.4 MG/1 ML IV PRN ×2 (09:18→16:37)
[2019-01-25] MEDS ORDERED: ZOFRAN IV PRN ×2 (09:18→16:37)
[2019-01-25] MEDS ORDERED: SUBLIMAZE IV PRN (09:18)
--- NOTE | 2019-01-25 09:18 | Anesthesia Day of Surgery ---
Anesthesia Day of Surgery - Day of Surgery Patient Examined: Yes Patient H&P Reviewed: Yes Patient is NPO: Yes Beta Blockers: No Cardiac Clearance: No Pulmonary Clearance: No
[2019-01-25] MEDS ORDERED: LACTATED RINGERS 1,000 ML IV SCH (10:00)
[2019-01-25] MEDS ORDERED: ANCEF/STERILE WATER 2 GM/20 ML IV NR (10:00)
[2019-01-25] MEDS ORDERED: VERSED ONE (10:20)
[2019-01-25] MEDS ORDERED: MARCAINE 0.5% INFILTRATI ONE ×3 (10:20→10:40)
[2019-01-25] MEDS ORDERED: TORADOL ONE (10:29)
[2019-01-25] MEDS ORDERED: ROBINUL ONE (10:29)
[2019-01-25] MEDS ORDERED: BLOXIVERZ ONE (10:29)
[2019-01-25] MEDS ORDERED: ZEMURON IV ONE ×4 (10:29→15:54)
[2019-01-25] MEDS ORDERED: QUELICIN ONE (10:29)
[2019-01-25] MEDS ORDERED: ZOFRAN ONE (10:29)
[2019-01-25] MEDS ORDERED: SUBLIMAZE ONE ×2 (10:29→16:31)
[2019-01-25] MEDS ORDERED: DECADRON ONE (10:29)
[2019-01-25] MEDS ORDERED: DIPRIVAN 10 MG/ML IV ONE (10:30)
[2019-01-25] MEDS ORDERED: XYLOCAINE 1% 20 mL ONE (10:40)
[2019-01-25] MEDS ORDERED: VERSED IV NR (11:00)
[2019-01-25] MEDS ORDERED: SUBLIMAZE IV ONE (11:00)
[2019-01-25] MEDS ORDERED: LACTATED RINGERS 1,000 ML ONE (11:56)
[2019-01-25] MEDS ORDERED: NACL 0.9% IR ONE (12:19)
[2019-01-25] MEDS ORDERED: DILAUDID ONE ×2 (13:56→16:35)
[2019-01-25] MEDS ORDERED: TYLENOL PO PRN (16:37)
[2019-01-25] MEDS ORDERED: MORPHINE IV PRN (16:37)
[2019-01-25] MEDS ORDERED: SODIUM CHLORIDE FLUSH SYRINGE 10 ML IV PRN (16:37)
--- NOTE | 2019-01-25 16:37 | Post Operative Note ---
Date of procedure: 01/25/19 Pre-op diagnosis: incisional hernia Post-op diagnosis: same Findings: 14cm x 18 cm incisional hernia - repaired with 20 x 25cm ventralight composite mesh Procedure: robotic assisted incisional hernia repair with mesh Anesthesia: JERARDO other (DARIEL block) Surgeon: TASHA NEWELL Estimated blood loss: minimal Pathology: none Condition: stable Disposition: PACU
[2019-01-25] MEDS: DILAUDID IV PRN ×4 (16:52→20:12)
[2019-01-25] MEDS ORDERED: D5/0.45NS 1,000 ML IV SCH (17:00)
[2019-01-25] MEDS ORDERED: DEMEROL IV PRN (17:05)
[2019-01-25] MEDS: SODIUM CHLORIDE FLUSH SYRINGE 10 ML IV SCH ×2 (20:17→22:08)
[2019-01-25] MEDS: PERCOCET 5/325 PO PRN (22:01)
[2019-01-25] MEDS: HEPARIN SUB-Q SCH (22:02)
[2019-01-26] MEDS: DILAUDID IV PRN ×2 (00:22→06:17)
[2019-01-26] MEDS: PERCOCET 5/325 PO PRN ×3 (03:06→13:05)
[2019-01-26] MEDS: HEPARIN SUB-Q SCH (06:17)
--- NOTE | 2019-01-26 09:04 | Discharge Summary ---
Providers - Providers Date of Admission: 01/25/19 16:37 Date of discharge: 01/26/19 Attending physician: TASHA NEWELL DO Primary care physician: ROSSY MORA Hospitalization Reason for admission: hernia Condition: Good Procedures: robotic assisted incisional hernia repair with mesh Hospital course: Patient admitted for observation. Hospital course was uncomplicated. She was discharged in stable condition. Disposition: DC-01 TO HOME OR SELFCARE Time spent for discharge: 20 minutes Core Measure Documentation - Palliative Care Palliative Care/ Comfort Measures: Not Applicable - Core Measures Any of the following diagnoses?: none Exam - Physical Exam Narrative exam: Gen: AAOx3. NAD CV: S1, S2+ resp; even and unlabored Abd: soft, ND, mild periincisional TTP. No r/r/g. incisions c/d/i. Abdominal binder in place Ext: no c/c/e - Constitutional Vitals: Temp Pulse Resp BP Pulse Ox 97.5 F L 85 18 127/66 94 01/26/19 07:41 01/26/19 07:41 01/26/19 07:41 01/26/19 07:41 01/26/19 07:41 Plan Activity: other (see printed dc instructions) Diet: regular Wound: open to air Additional Instructions: SEE PRINTED DISCHARGE INSTRUCTIONS Follow up with: ROSSY MORA MD [Primary Care Provider] - 7 Days TASHA NEWELL DO [Staff Physician] - 14 Days Prescriptions: oxyCODONE /ACETAMINOPHEN [Percocet 5/325 mg] 1 tab PO Q4H PRN #30 tablet PRN Reason: Pain, Moderate (4-6)
[2019-01-26 11:56] VITALS: BP 118/72
--- NOTE | 2019-01-29 13:52 | Operative Report ---
PREOPERATIVE DIAGNOSIS: Incisional hernia. POSTOPERATIVE DIAGNOSIS: Incisional hernia. FINDINGS: A 14 cm x 18 cm incisional hernia repaired with a 20 x 25 cm Ventralight composite mesh. PROCEDURE: Robotic-assisted incisional hernia repair with mesh. ANESTHESIA: General endotracheal anesthesia, TAP block. SURGEON: Patricia Chris DO. GLOBAL COMMODITY MANAGER: Yaneth Tellez. ESTIMATED BLOOD LOSS: Minimal. PATHOLOGY: None. CONDITION: Stable. DISPOSITION: To PACU. HISTORY OF PRESENT ILLNESS AND INDICATION: The patient is a 43-year-old female who underwent an exploratory laparotomy via an upper midline incision secondary to a perforated gastric ulcer several years ago. She was seen in the office for an incisional hernia at that site. Due to the discomfort in that area and the size of the hernia, repair was recommended. CT scan of the abdomen and pelvis was reviewed prior to operation, which showed a 6 cm incisional hernia containing fat. All risks, benefits, and alternatives of surgery were discussed with the patient along with the robotic, laparoscopic, open approaches. All questions were answered and consent obtained. PROCEDURE IN DETAIL: The patient was identified in the preoperative area, taken back to the operating room and placed on the operating table in supine position. After anesthesia was induced, a Calderon catheter was sterilely placed by the circulating nurse and the abdomen was prepped and draped in the usual sterile fashion. Bilateral arms were tucked and all bony prominences were padded. The Veress needle was placed through the umbilicus and the abdomen was insufflated to 15 mmHg. After the abdomen was then insufflated, an incision was made in the right upper quadrant through which a 5 mm Optiview trocar was placed. The abdomen was inspected. There was no underlying injury to any of the abdominal structures. The Veress needle was visualized and there was no underlying injury here. The Veress needle was removed. The patient was rotated to the left and a 12 mm balloon trocar was placed in the right mid lateral abdomen and a 8 mm robotic trocar in the right lower quadrant and all under direct visualization. The 5 mm right upper quadrant trocar was removed and replaced with a 8 mm robotic trocar under direct visualization. The robot was then docked with the fenestrated bipolar grasper in arm #2 and a monopolar scissors in arm #1. The surgeon was transferred to the console. First there was some omentum incarcerated in the hernia, which was dissected using the monopolar scissors. Once all the omentum was reduced. A preperitoneal flap was created approximately 4-5 cm from the edge of the hernia defect. The preperitoneal flap was created using combination of blunt dissection as well as electrocautery. Once the hernia defect was encountered, the hernia sac along with preperitoneal fat was carefully reduced from the hernia. While the preperitoneal flap was taken up in the cephalad fashion, more smaller hernia defects were encountered along the entire length of the incision. Once the entire hernia was exposed and all hernia defect seen, the preperitoneal flap was carried out towards the patient's left in order to create enough space to accommodate a large mesh. The hernia defect measured 14 cm x 18 cm. Once the preperitoneal flap was created, the [place] cheese defect was closed using 0 V-Loc suture in a running fashion x 2. A 20 x 25 cm Ventralight composite mesh was chosen to repair the hernia. The mesh was placed into the abdomen via the 12 mm port along with suture material. The mesh was placed into the pocket and secured in 4 quadrants using 0 Vicryl interrupted sutures. Once the mesh was secured, the preperitoneal flap was checked for hemostasis, which was carefully ensured. The preperitoneal flap was then closed using a 2-0 V-Loc running suture. There were some defects in the peritoneum, which were not closed. A composite mesh was used with the bowel side facing the peritoneum and therefore it was decided to leave those areas open. The abdomen was once again checked for hemostasis and the ports were removed. The 12 mm port fascia was closed in interrupted 0 Vicryl suture using Cristopher-Kimberlyn device. The 8 mm ports were slowly removed and the abdomen was slowly desufflated. The peritoneum and mesh was seen to lay flat. The skin incisions were then closed with 4-0 Monocryl subcuticular stitches and skin glue. At the end of the case, all sponge, instrument, sharp counts were correct x 2. Calderon catheter was removed and the patient was awoken from anesthesia, extubated, and taken to PACU in stable condition. JOB# [id number] ALCON/ELI JACQUES
== END 2019-01-26 13:30 | disposition home or self-care (01) ==
LOC: OR 08:34 → 3B-SURG 16:37
PROVIDERS: ADMIT Surgery; ATTEND Surgery
DX: K43.2 Incisional hernia without obstruction or gangrene (principal); M19.90 Unspecified osteoarthritis, unspecified site; F17.200 Nicotine dependence, unspecified, uncomplicated; Z90.89 Acquired absence of other organs; Z98.890 Other specified postprocedural states
CPT/HCPCS: 49655; 64450; 81025; 96372; 96374; 96375; 96376; C1781; G0378; J0330; J1100; J1170; J1644; J1885; J2250; J2270; J2405; J2704; J2710; J3010; J7120; S2900

== ENCOUNTER 2019-06-28 17:26 | Emergency (ER) | payer MEDICAID ==
--- NOTE | 2019-06-28 17:54 | Event Note ---
ED Screening Note ED Screening Note: This initial assessment/diagnostic orders/clinical plan/treatment(s) is/are subject to change based on patients health status, clinical progression and re- assessment by fellow clinical providers in the ED. Further treatment and workup at subsequent clinical providers discretion. Patient/guardian urged not to elope from the ED as their condition may be serious if not clinically assessed and managed. Initial orders include: 44 yo female with L index finger index finger laceration x 1 day.
[2019-06-28] MEDS ORDERED: ONDANSETRON 4 MG ODT TAB PO ONE (19:41)
[2019-06-28] MEDS ORDERED: oxyCODONE /ACETAMINOPHEN 5-325MG TAB PO ONE (19:41)
[2019-06-28] MEDS ORDERED: TETANUS,DIPH,PERTUSS(ACELL) VACCINE 0.5 ML SYRINGE IM ONE (19:43)
[2019-06-28] MEDS ORDERED: LIDOCAINE-MPF (1%) 10 MG/1 ML VIAL 5 ML INFILTRATI ONE (19:43)
[2019-06-28] MEDS ORDERED: ONDANSETRON 4 MG ODT TAB ONE (19:44)
[2019-06-28] MEDS ORDERED: oxyCODONE /ACETAMINOPHEN 5-325MG TAB ONE (19:44)
--- NOTE | 2019-06-28 20:47 | Emergency Department Report ---
Upper Extremity - HPI Chief Complaint: Extremity Injury, Upper Stated Complaint: CUT FINGER Upper Extremity: Left Index Finger (bleeding painful laceration) Occurred When: Today Mechanism: Other (cut left index finger) Severity: moderate Symptoms: Yes Pain with Movement, Yes Laceration or Abrasion (left index finger), No Deformity, No Limited Range of Movement, No Numbness, No Weakness, No Swelling, No Bruising/Ecchymosis Other History: Patient is a 44-year-old white female with no past medical history presents to the ED with complaint of acute onset painful bleeding left index finger laceration on the palmar side after she accidentally cut her left finger while cutting some vegetables at home about one hour ago. Patient denies numbness or tingling or weakness of the left index finger on left hand. Patient states that she is not updated her tetanus vaccination and would like to be up-to-date. ED Review of Systems ROS: Stated complaint: CUT FINGER Other details as noted in HPI Constitutional: denies: chills, fever Eyes: denies: eye pain, eye discharge, vision change ENT: denies: ear pain, throat pain Respiratory: denies: cough, shortness of breath, wheezing Cardiovascular: denies: chest pain, palpitations Endocrine: no symptoms reported Gastrointestinal: denies: abdominal pain, nausea, diarrhea Genitourinary: denies: urgency, dysuria, discharge Musculoskeletal: other (left index finger laceration with pain). denies: back pain, joint swelling, arthralgia Skin: other (Bleeding left index finger laceration with pain). denies: rash, lesions Neurological: denies: headache, weakness, paresthesias Psychiatric: denies: anxiety, depression Hematological/Lymphatic: denies: easy bleeding, easy bruising ED Past Medical Hx - Past Medical History Hx Hypertension: No Hx Heart Attack/AMI: No Hx Congestive Heart Failure: No Hx Diabetes: No Hx Deep Vein Thrombosis: No Hx Pulmonary Embolism: No Hx GERD: Yes Hx Liver Disease: No Hx Renal Disease: No Hx Sickle Cell Disease: No Hx Arthritis: Yes Hx Kidney Stones: No Hx Asthma: No Hx COPD: No Hx Tuberculosis: No Hx Dementia: No Hx HIV: No Additional medical history: ulcers - Surgical History Hx Coronary Stent: No Hx Open Heart Surgery: No Hx Pacemaker: No Hx Internal Defibrillator: No Hx Cholecystectomy: No Hx Appendectomy: No Hx Breast Surgery: No Additional Surgical History: tonsillectomy, tubal ligation, - Social History Smoking Status: Current Every Day Smoker Substance Use Type: Alcohol - Medications Home Medications: Home Medications Medication Instructions Recorded Confirmed Last Taken Type Pantoprazole [Protonix TAB] 40 mg PO BID 01/23/19 01/25/19 01/25/19 06:00 History oxyCODONE /ACETAMINOPHEN [Percocet 1 tab PO Q4H PRN #30 tablet 01/26/19 Unknown Rx 5/325 mg] cephALEXin [Keflex] 500 mg PO Q8HR #30 cap 06/28/19 Unknown Rx traMADol [Ultram 50 MG tab] 50 mg PO Q6HR PRN #12 06/28/19 Unknown Rx Upper Extremity Exam - Exam General: Vital signs noted. No distress. Alert and acting appropriately. Head and Torso: No HEENT Abnormality, No Neck Tenderness, No Chest/Lungs Abnormality, No Abdominal Tenderness, No Back Tenderness Shoulder Exam: Yes Normal Range of Motion in Shoulder, No Shoulder Tenderness, No Clavicle Tenderness, No Shoulder Deformity, No AC Joint Tenderness Arm Exam: No Arm/Humerus Tenderness, No Arm Deformity Elbow: Yes Normal Range of Motion in Elbow, No Elbow Tenderness, No Elbow Deformity Forearm: No Forearm Tenderness, No Forearm Deformity, No Pain with Pronation, No Pain with Supination Wrist: Yes Normal ROM in Wrist, No Wrist Tenderness, No Wrist Deformity, No Snuffbox Tenderness, No Pain with Axial Thumb Compression Hand: Yes Hand Tenderness (due to bleeding laceration of left index finger), Yes Digit Tenderness (due to bleeding 3 cm laceration of left index finger), Yes Normal ROM in Digit(s), No Hand Deformity, No Digit(s) Deformity, No Tendon Dysfunction CMS Exam: Yes Normal Distal Pulses, Yes Normal Capillary Refill, Yes Normal Distal Sensation, No Broken Skin Hand L/R Front: 1 - Bleeding 3 cm left index finger laceration on palmar side ED Course Vital Signs 06/28/19 17:37 Temperature 98.8 F Pulse Rate 78 Respiratory 18 Rate Blood Pressure 152/109 [Right] O2 Sat by Pulse 97 Oximetry - Reevaluation(s) Reevaluation #1: 06/28/19 20:47 This is a 44-year-old female who presented to the ED with bleeding left index finger laceration on the palmar side when cutting vegetables at home but 1 hour ago. In the ED, patient is alert and oriented 3 and is not in distress. Patient was treated in the ED for pain and also received tetanus booster vaccination. The left index finger laceration was sutured per protocol and the patient tolerated the procedure well. Patient was discharged home on pain medications and oral antibiotics prophylactically and advised to follow-up with her primary care physician in 7-10 days for reevaluation or return to the ED immediately if symptoms get worse. Patient was otherwise advised to return to the ED or to her primary care physician in 12-14 days for suture removal. - Laceration /Wound Repair Left Finger Wound Location: upper extremity (left index finger laceration) Wound's Depth, Shape: superficial, flap Wound Explored: contaminated Irrigated w/ Saline (ccs): 50 Betadine Prep?: Yes Anesthesia: 1% Lidocaine Volume Anesthetic (ccs): 5 Wound Debrided: extensive Wound Repaired With: sutures Suture Size/Type: 4:0, proline Number of Sutures: 7 Layer Closure?: No Sterile Dressing Applied?: Yes Progress: Patient left the procedure well. Patient was discharged home on medications and advised to follow-up with her primary care physician in 7-10 days for reevaluation. Patient is otherwise return to the ED immediately if symptoms get worse. Patient was also advised to return to the ED or to her primary care physician in 12-14 days for suture removal. ED Medical Decision Making - Medical Decision Making This is a 44-year-old female who presented to the ED with bleeding left index finger laceration on the palmar side when cutting vegetables at home but 1 hour ago. In the ED, patient is alert and oriented 3 and is not in distress. Patient was treated in the ED for pain and also received tetanus booster vaccination. The left index finger laceration was sutured per protocol and the patient tolerated the procedure well. Patient was discharged home on pain medications and oral antibiotics prophylactically and advised to follow-up with her primary care physician in 7-10 days for reevaluation or return to the ED immediately if symptoms get worse. Patient was otherwise advised to return to the ED or to her primary care physician in 12-14 days for suture removal. - Differential Diagnosis Finger laceration; finger contusion Critical care attestation.: If time is entered above; I have spent that time in minutes in the direct care of this critically ill patient, excluding procedure time. ED Disposition Clinical Impression: Laceration of left index finger w/o foreign body w/o damage to nail Qualifiers: Encounter type: initial encounter Qualified Code(s): S61.211A - Laceration without foreign body of left index finger without damage to nail, initial encounter Disposition: TO HOME OR SELFCARE Is pt being admited?: No Does the pt Need Aspirin: No Condition: Stable Instructions: Suture Care (ED), Finger Laceration (ED) Additional Instructions: Take medications with food, drink plenty of fluids and follow-up with your primary care physician in 7-10 days for reevaluation. Return to the ED immediately if symptoms get worse. Otherwise follow-up with your primary care physician or return to the ED in 12-14 days for suture removal. Prescriptions: cephALEXin [Keflex] 500 mg PO Q8HR #30 cap traMADol [Ultram 50 MG tab] 50 mg PO Q6HR PRN #12 PRN Reason: Pain Referrals: JAMES HARRISON MD [Primary Care Provider] - 3-5 Days Time of Disposition: 20:52 Print Language: BAHAMIAN
[2019-06-28 21:24] VITALS: BP 125/88
== END 2019-06-28 21:24 | disposition home or self-care (01) ==
LOC: ED 17:26
DX: S61.211A Laceration without foreign body of left index finger without damage to nail, initial encounter (principal); K21.9 Gastro-esophageal reflux disease without esophagitis; M19.90 Unspecified osteoarthritis, unspecified site; Z98.51 Tubal ligation status; Z90.89 Acquired absence of other organs; F17.200 Nicotine dependence, unspecified, uncomplicated; Z79.899 Other long term (current) drug therapy; W26.0XXA Contact with knife, initial encounter; Y93.89 Activity, other specified; Y92.89 Other specified places as the place of occurrence of the external cause; Y99.8 Other external cause status
CPT/HCPCS: 90471; 90715; 99282; Q0162